=== PATIENT | male | born 1980 | race Caucasian/White ===

== ENCOUNTER 2020-08-01 20:39 | Emergency (ER) | payer MEDICAID ==
[~2020-08-01] VITALS: Ht 190.5 cm; Wt 77.1 kg
[2020-08-01 20:54] VITALS: Ht 190.5 cm; Wt 77.1 kg
[2020-08-01 21:09] VITALS: BP 152/103
== END 2020-08-01 21:09 ==
LOC: ED 20:39
DX: S00.212A Abrasion of left eyelid and periocular area, initial encounter (principal); S60.512A Abrasion of left hand, initial encounter; X58.XXXA Exposure to other specified factors, initial encounter; Y93.89 Activity, other specified; Y92.89 Other specified places as the place of occurrence of the external cause; Y99.8 Other external cause status

== ENCOUNTER 2020-08-01 20:39 | Emergency (ER) | payer OTHER | END 2020-08-01 21:09 | LOC: ED 20:39 | DX: Z02.89 Encounter for other administrative examinations (principal) ==